=== PATIENT | female | born 1940 | race Caucasian/White ===

== ENCOUNTER 2019-09-01 21:49 | Inpatient (IN) ==
[2019-09-01] MEDS ORDERED: TYLENOL PO ONE (22:12)
--- NOTE | 2019-09-01 22:37 | PROVIDER DOCUMENTATION ---
This chart was entered by Feli Lopez Scribe, acting as scribe for Eamon Coyle MD. HPI-Respiratory General - General Chief Complaint: Shortness of Breath Stated Complaint: SOB COUGH Time Seen by Provider: 09/01/19 21:57 Source: patient Allergies/Adverse Reactions: Patient Allergies Allergy/AdvReac Type Severity Reaction Status Date / Time morphine AdvReac Intermediate "makes me Verified 01/26/14 20:33 crazy" Home Medications: Home Medication List Medication Instructions Recorded Confirmed Last Taken Type Alprazolam [Xanax] 0.5 mg PO BID 11/16/13 01/26/14 01/25/14 History Diltiazem HCl [Diltiazem 24Hr Cd] 240 mg PO DAILY 11/16/13 01/26/14 01/26/14 History Furosemide [Lasix] 40 mg PO DAILY 11/16/13 01/26/14 01/26/14 History Glipizide [Glipizide ER] 10 mg PO DAILY 11/16/13 01/26/14 01/26/14 History Levothyroxine [Synthroid] 125 microgm PO DAILY 11/16/13 01/26/14 01/26/14 History PRAVAstatin [Pravachol] 80 mg PO DAILY 11/16/13 01/26/14 01/26/14 History Warfarin [Coumadin] 2.5 mg PO QHS 11/16/13 01/26/14 01/25/14 History - History of Present Illness-Resp Nature of Presenting Problem: 79 y/o female with history of diabetes, COPD, and hypertension presents to the ED with complaint of fever and dry cough times three days. She is on Warfarin but does not know what she takes this for. Onset/Duration: reports: 3 days ago Timing: reports: still present Cough Quality/Degree: reports: dry cough Current Respiratory Medication Therapy: Initiated see nurses note Associated Symptoms: reports: cough (dry), fever/chills Similar Symptoms Previously?: No Recently seen or treated by another doctor?: No Review of Systems - Adult - REVIEW OF SYSTEMS - ADULT Constitutional: reports: fever. denies: weight gain, weight loss Eyes: reports: no symptoms reported Ears, Nose, Mouth & Throat: reports: no symptoms reported Cardiovascular: reports: no symptoms reported Respiratory: reports: cough (dry). denies: hemoptysis, shortness of breath Gastrointestinal: denies: diarrhea, nausea, vomiting Genitourinary: reports: no symptoms reported Musculoskeletal: reports: no symptoms reported Integumentary: reports: no symptoms reported Neurological: reports: no symptoms reported Psychiatric: reports: no symptoms reported Endocrine: reports: no symptoms reported Hematologic/Lymphatic: reports: no symptoms reported Allergic/Immunologic: reports: no symptoms reported All Other Systems: Reviewed and Negative Past History - Adult - PAST MEDICAL HISTORY-ADULT Review of Records: reports: Old Records Reviewed, Nursing Assessment Review, Medications Reviewed Major Childhood Illnesses: reports: denies history Cardiovascular: reports: A-Fib, HTN, hyperlipidemia Respiratory: reports: asthma Gastrointestinal: reports: denies history Obstetrical/Gynecological: reports: denies history Genitourinary: reports: denies history Musculoskeletal: reports: denies history Neurological: reports: denies history Endocrine/Immune: reports: Diabetes, thyroid disorder Other Conditions: reports: denies history - PRIOR SURGERIES/PROCEDURES Surgical/Procedure History: reports: BTL - PRIOR HOSPITALIZATIONS Prior Hospitalizations: reports: none - IMMUNIZATION STATUS Childhood Immunizations: See Nurse Assessment Flu Vaccine: See Nurse Assessment - FAMILY HISTORY Family History: reviewed, not pertinent - SOCIAL HISTORY Smoking: non-smoker Substance Use: none/never Alcohol Use Frequency: never Physical Exam-General - PHYSICAL EXAM-ADULT Initial Vital Signs Reviewed: Yes - CONSTITUTIONAL General Appearance: alert, obese. negative: appears well - EYES Eyes: PERRL/EOMI - HEAD, EARS, NOSE, MOUTH & THROAT HENMT: normocephalic/atraumatic, moist mucous membranes - NECK Neck: full range of motion, supple - RESPIRATORY Respiratory: decreased breath sounds, wheezing (scattered) - CARDIOVASCULAR Cardiovascular: tachycardia - GASTROINTESTINAL (ABDOMEN) Abdominal Exam: non tender, soft. negative: guarding, rebound - SKIN Integumentary: other (hot to touch). negative: diaphoresis - NEUROLOGIC Neurologic: grossly normal - HEART Score HEART Score: Age: > or = 65 Years Progress - PLAN OF CARE/RESULTS Progress/Plan/Lab Results: Vital Signs - 8 hr 09/01/19 21:56 Temperature 102.6 F H Pulse Rate 132 H Respiratory Rate 22 Blood Pressure 162/144 O2 Sat by Pulse Oximetry 82 L Laboratory Results - last 24 hr 09/01/19 09/01/19 09/01/19 22:18 22:18 22:18 WBC 9.84 RBC 4.49 Hgb 14.3 Hct 43.8 MCV 97.6 MCH 31.8 H MCHC 32.6 L RDW Std Deviation 13.8 Plt Count 168 MPV 11.3 H Immature Gran % (Auto) 0.3 Neut % (Auto) 80.2 H Lymph % (Auto) 7.8 L Callahan % (Auto) 11.6 H Eos % (Auto) 0.0 Baso % (Auto) 0.1 Immature Gran # (Auto) 0.03 Neut # (Auto) 7.89 H Lymph # (Auto) 0.77 L Callahan # (Auto) 1.14 H Eos # (Auto) 0.00 Baso # (Auto) 0.01 PT INR Specimen Type Sample Site pH pCO2 pO2 HCO3 Base Excess Oxyhemoglobin ABG O2 Sat (Calculated) ABG O2 Saturation ABG Carboxyhemoglobin ABG Methemoglobin Bo Test A-a O2 Difference Total Hemoglobin Lactate Liter Flow Blood Gas Modality FiO2 % Sodium 137 Potassium 4.2 Chloride 95 L Carbon Dioxide 22 L Anion Gap 20 BUN 21 Creatinine 1.2 H Estimated GFR/1.73 m2 43 BUN/Creatinine Ratio 18 Glucose 215 H Calculated Osmolality 283 Calcium 9.6 Total Bilirubin 1.30 H AST 20 ALT 20 Alkaline Phosphatase 64 Creatine Kinase 112 Troponin T High Sens Klz-C-Hnclthmtwjm Pept Total Protein 6.9 Albumin 3.9 Globulin 3.0 Albumin/Globulin Ratio 1.0 Plasma Lactate Urine Source Urine Color Urine Turbidity Urine pH Ur Specific [place] Urine Protein Ur Glucose (Stick) Ur Ketones (Stick) Urine Blood Urine Nitrite Urine Bilirubin Urobilinogen Dipstick Urine Leukocytes Urine WBC (Auto) Urine RBC (Auto) U Epithel Cells (Auto) Urine Bacteria (Auto) Influenza A (Rapid) Influenza B (Rapid) 09/01/19 09/01/19 09/01/19 22:18 22:18 22:18 WBC RBC Hgb Hct MCV MCH MCHC RDW Std Deviation Plt Count MPV Immature Gran % (Auto) Neut % (Auto) Lymph % (Auto) Callahan % (Auto) Eos % (Auto) Baso % (Auto) Immature Gran # (Auto) Neut # (Auto) Lymph # (Auto) Callahan # (Auto) Eos # (Auto) Baso # (Auto) PT INR Specimen Type Sample Site pH pCO2 pO2 HCO3 Base Excess Oxyhemoglobin ABG O2 Sat (Calculated) ABG O2 Saturation ABG Carboxyhemoglobin ABG Methemoglobin Bo Test A-a O2 Difference Total Hemoglobin Lactate Liter Flow Blood Gas Modality FiO2 % Sodium Potassium Chloride Carbon Dioxide Anion Gap BUN Creatinine Estimated GFR/1.73 m2 BUN/Creatinine Ratio Glucose Calculated Osmolality Calcium Total Bilirubin AST ALT Alkaline Phosphatase Creatine Kinase Troponin T High Sens 24 H Ehp-B-Bfvpfsrjbgo Pept 2240 H Total Protein Albumin Globulin Albumin/Globulin Ratio Plasma Lactate 2.6 H Urine Source Urine Color Urine Turbidity Urine pH Ur Specific [place] Urine Protein Ur Glucose (Stick) Ur Ketones (Stick) Urine Blood Urine Nitrite Urine Bilirubin Urobilinogen Dipstick Urine Leukocytes Urine WBC (Auto) Urine RBC (Auto) U Epithel Cells (Auto) Urine Bacteria (Auto) Influenza A (Rapid) Influenza B (Rapid) 09/01/19 09/01/19 09/01/19 22:18 22:26 22:35 WBC RBC Hgb Hct MCV MCH MCHC RDW Std Deviation Plt Count MPV Immature Gran % (Auto) Neut % (Auto) Lymph % (Auto) Callahan % (Auto) Eos % (Auto) Baso % (Auto) Immature Gran # (Auto) Neut # (Auto) Lymph # (Auto) Callahan # (Auto) Eos # (Auto) Baso # (Auto) PT 18.0 H INR 1.41 Specimen Type ARTERIAL Sample Site L BRACHIAL pH 7.45 pCO2 37 pO2 61 HCO3 26.2 H Base Excess 1.9 Oxyhemoglobin 90.7 L ABG O2 Sat (Calculated) 19.4 ABG O2 Saturation 94.5 L ABG Carboxyhemoglobin 3.00 H ABG Methemoglobin 0.9 Bo Test NO A-a O2 Difference 149.0 Total Hemoglobin 15.2 Lactate 2.30 H Liter Flow 4.0 Blood Gas Modality CANNULA FiO2 % 36.0 Sodium Potassium Chloride Carbon Dioxide Anion Gap BUN Creatinine Estimated GFR/1.73 m2 BUN/Creatinine Ratio Glucose Calculated Osmolality Calcium Total Bilirubin AST ALT Alkaline Phosphatase Creatine Kinase Troponin T High Sens Txy-I-Scfanpimumn Pept Total Protein Albumin Globulin Albumin/Globulin Ratio Plasma Lactate Urine Source Urine Color Urine Turbidity Urine pH Ur Specific [place] Urine Protein Ur Glucose (Stick) Ur Ketones (Stick) Urine Blood Urine Nitrite Urine Bilirubin Urobilinogen Dipstick Urine Leukocytes Urine WBC (Auto) Urine RBC (Auto) U Epithel Cells (Auto) Urine Bacteria (Auto) Influenza A (Rapid) NEGATIVE Influenza B (Rapid) NEGATIVE 09/01/19 23:17 WBC RBC Hgb Hct MCV MCH MCHC RDW Std Deviation Plt Count MPV Immature Gran % (Auto) Neut % (Auto) Lymph % (Auto) Callahan % (Auto) Eos % (Auto) Baso % (Auto) Immature Gran # (Auto) Neut # (Auto) Lymph # (Auto) Callahan # (Auto) Eos # (Auto) Baso # (Auto) PT INR Specimen Type Sample Site pH pCO2 pO2 HCO3 Base Excess Oxyhemoglobin ABG O2 Sat (Calculated) ABG O2 Saturation ABG Carboxyhemoglobin ABG Methemoglobin Bo Test A-a O2 Difference Total Hemoglobin Lactate Liter Flow Blood Gas Modality FiO2 % Sodium Potassium Chloride Carbon Dioxide Anion Gap BUN Creatinine Estimated GFR/1.73 m2 BUN/Creatinine Ratio Glucose Calculated Osmolality Calcium Total Bilirubin AST ALT Alkaline Phosphatase Creatine Kinase Troponin T High Sens Vud-U-Axxphmniroz Pept Total Protein Albumin Globulin Albumin/Globulin Ratio Plasma Lactate Urine Source CATH Urine Color YELLOW Urine Turbidity CLEAR Urine pH 6.0 Ur Specific [place] 1.037 Urine Protein 300 A Ur Glucose (Stick) >1000 A Ur Ketones (Stick) 10 A Urine Blood MODERATE A Urine Nitrite NEGATIVE Urine Bilirubin NEGATIVE Urobilinogen Dipstick NORMAL Urine Leukocytes NEGATIVE Urine WBC (Auto) 10-20 A Urine RBC (Auto) 20-40 A U Epithel Cells (Auto) >10 A Urine Bacteria (Auto) NEGATIVE Influenza A (Rapid) Influenza B (Rapid) Orders Category Date Time Status Admit - [facility] Routine AdmDCTranf 09/01/19 23:52 Active Cardiac Monitoring NOW Care 09/01/19 22:02 Active IV Insertion NOW Care 09/01/19 22:02 Completed Isolation Precautions Setup NOW Care 09/01/19 21:57 Active Misc. NRSG Communication Order DIRECTED Care 09/01/19 23:35 Active NEWS Score >or=5:Order NEWS Bundle S.O. NOW Care 09/01/19 22:00 Active Notify Provider of NEWS Score NOW Care 09/01/19 22:02 Active Resuscitation Status Routine Care 09/01/19 23:52 Ordered Vital Signs Order Q 4-HR ASSESS Care 09/01/19 23:52 Active Z-Document. for Tele Applied ORDERED Care 09/01/19 23:53 Active NPO Diet 09/01/19 23:54 Active CHEST-PORTABLE [RAD] Stat Exams 09/01/19 22:00 Taken ABG [RESP] Routine Lab 09/01/19 22:26 Completed BLOOD CULTURE [BLDCUL] Stat Lab 09/01/19 22:44 Ordered BNP [PRO B-NATRIURETIC PEPTIDE] Stat Lab 09/01/19 22:18 Completed CBC WITH ELECTRONIC DIFF [HEME] Stat Lab 09/01/19 22:18 Completed CK PROFILE [SP CHEM] Stat Lab 09/01/19 22:18 Completed CMP [COMPREHENSIVE METABOLIC PANEL] [CHEM] Stat Lab 09/01/19 22:[address] Stat Lab 09/01/19 22:35 Completed LACTATE, PLASMA [CHEM] Lab 09/01/19 22:18 Completed LACTATE, PLASMA [CHEM] Lab 09/02/19 01:15 Uncollected LACTATE, PLASMA [CHEM] Lab 09/02/19 04:15 Uncollected PROTIME WITH INR [COAG] Stat Lab 09/01/19 22:18 Completed TROPONIN T HIGH SENSITIVITY Stat Lab 09/01/19 22:18 Completed URINALYSIS W/POSS RFLX CULT [URINALYSIS] Stat Lab 09/01/19 23:17 Completed 0.9% Sodium Chloride Inj [Ns] 100 ml Med 09/01/19 23:47 Discontinued .ROUTE As directed Acetaminophen [Tylenol] Med 09/01/19 22:12 Discontinued 650 mg PO NOW ONE Acetaminophen [Tylenol] Med 09/01/19 23:52 Active 650 mg PO Q6H PRN PRN Azithromycin 500 mg/Ns [Zithromax 500 mg/Ns] Med 09/01/19 23:34 Active 500 mg in 250 ml IV NOW CefTRIAXONE [Rocephin] Med 09/01/19 23:47 Discontinued 2 gm .ROUTE .STK-MED ONE CefTRIAXONE [Rocephin] 2 gm Med 09/01/19 23:33 Discontinued 0.9% Sodium Chloride Inj [Ns] 50 ml IV NOW Furosemide [Lasix] Med 09/01/19 23:34 Discontinued 60 mg IV NOW ONE O2 Per Protocol Stat Oth 09/01/19 22:02 Active Oxygen Device Stat Oth 09/01/19 21:58 Active Telemetry [OM.EQ] Routine Oth 09/01/19 23:52 Active EKG [EKG] Stat Ther 09/01/19 22:01 Ordered Transfer/Admit Order [TRANSFER] Routine Transfer 09/01/19 23:54 Ordered 2334: Flu A and B negative. Result Diagrams: 09/01/19 22:18 09/01/19 22:18 - REASSESSMENT Reassessment #1 Time Reassessed: 00:05 Status: improving Reassessment Comment: oxygen sat improved - EKG 1 Time of EKG reading by physician:: 23:09 EKG Read and Signed by:: Eamon Coyle EKG Interpretation (*Must complete 3 of following elements*): Abnormal (possible anterior infarct age undetermined, ST and T wave abnormality consider inferolateral ischemia) Rate: 115 Rhythm: a-fib w/RVR Comments: No STEMI - XRAY 1 XRAY Study: Chest Impression: Abnormal (right lower lobe infiltrate, chf, increased interstitial markings) - CONSULTS/PCP/HOSPITALIST Notification #1 *Consult/PCP/Hospitalist*: Hospitalist, Dr. Mathews Time Discussed: 23:44 Reason/Comments: pneumonia,CHF, possible covid-19 Consult Disposition: Admit Departure - Departure Date of Disposition Decision: 09/01/19 Time of Disposition Decision: 23:42 DIAGNOSIS: Hypoxemia RLL pneumonia Qualifiers: Pneumonia type: due to unspecified organism Qualified Code(s): J18.9 - Pneumonia, unspecified organism Urinary tract infection Qualifiers: Urinary tract infection type: site unspecified Hematuria presence: with hemat uria Qualified Code(s): N39.0 - Urinary tract infection, site not specified CHF (congestive heart failure) Qualifiers: Heart failure type: unspecified Heart failure chronicity: unspecified Qualified Code(s): I50.9 - Heart failure, unspecified Disposition: ADMITTED INPATIENT 09 Certified Medical Emergency: Emergent Condition: Stable Referrals and Follow-Ups: None,PCP [Primary Care Provider] - - Critical Care Note This patient required my direct & personal management of CC.: Yes Total Time (mins): 95 Critical Care Statement: This patient required my direct personal management to treat or rule out processes, the absence of which, could potentiallly result in sudden, clinically significant life or limb threatening deterioration. Attestation - Physician/ ABEBA Attestation Patient care was provided by Advanced Practice Provider:: No The physician spent face to face time with patient:: Yes Advanced Practice Provider documentation review:: Supervising physician onsite and consulted in the evaluation and care of this patient. The physician did have a face to face encounter with the patient. This chart was documented by the indicated scribe, (Feli Lopez Scribe) and accurately reflects the services I performed and decisions made by me, Eamon Cyole MD, as attested by the provider's signature.
[2019-09-01 22:41] LABS: BE 1.9 mmoll (-3.0-3.0); BLOOD TYPE ARTERIAL; HCO3-(ACT) 26.2 mmoll (20.0-26.0); METHB 0.9 % (0.0-1.5); O2(CT) 19.4 mL/dL (15.0-23.0); O2HB 90.7 % (95.0-99.0); PCO2(98.6) 37 mmHg (35-45); PO2(98.6) 61 mmHg (60-100); SAMPLE BLOOD; SAO2 94.5 % (95.0-100.0); THB 15.2 g/dL (11.5-17.4); pH(98.6) 7.45 (7.35-7.45)
[2019-09-01 22:42] LABS: ALLEN TEST NO; MODALITY CANNULA
[2019-09-01 23:05] LABS: BASO# 0.01 X1000 (0.0-0.2); BASO% 0.1 % (0.0-0.8); HEMATOCRIT 43.8 % (37.0-47.0); HEMOGLOBIN 14.3 g/dL (12.0-16.0); IMM GRAN# 0.03 X1000 (0.0-0.04); IMM GRAN% 0.3 % (0.0-0.5); LYMPH# 0.77 X1000 (1.2-3.4); LYMPH% 7.8 % (20.5-51.1); MCH 31.8 PG (27-31); MCHC 32.6 g/dL (33-37); MCV 97.6 FL (81-99); MONO# 1.14 X1000 (0.11-0.59); MONO% 11.6 % (1.7-9.3); MPV 11.3 FL (7.4-10.4); NEUT# 7.89 X1000 (1.4-6.5); NEUT% 80.2 % (42.2-75.2); PLT 168 X1000 (130-400); RBC 4.49 XMIL (4.2-5.4); RDW 13.8 % (11.5-14.5); WBC 9.84 X1000 (4.8-10.8)
[2019-09-01 23:11] LABS: INFLUENZA A NEGATIVE (NEGATIVE); INFLUENZA B NEGATIVE (NEGATIVE)
[2019-09-01 23:16] LABS: ALBUMIN 3.9 g/dL (3.5-5.0); CALCIUM 9.6 mg/dL (8.8-10.2); CREATININE 1.2 mg/dL (0.5-0.9); POTASSIUM 4.2 mmol/L (3.5-5.1); TOTAL BILIRUBIN 1.3 mg/dL (0.20-1.00); TOTAL PROTEIN 6.9 g/dL (6.3-8.3)
[2019-09-01 23:27] LABS: URINE SOURCE CATH
[2019-09-01 23:31] LABS: BILIRUBIN URINE NEGATIVE (NEGATIVE); BLOOD URINE MODERATE (NEGATIVE); COLOR YELLOW; GLUCOSE URINE >1000 mg/dL (NEGATIVE); KETONE URINE 10 mg/dL (NEGATIVE); LEUKOCYTES URINE NEGATIVE (NEGATIVE); NITRITE URINE NEGATIVE (NEGATIVE); PROTEIN URINE 300 mg/dL (NEGATIVE); SP GRAVITY URINE 1.037; TURBIDITY URINE CLEAR (CLEAR); UROBILINOGEN URINE NORMAL (NORMAL)
[2019-09-01 23:32] LABS: UR EPITHELIAL CELLS >10 /HPF (<10); URINE BACTERIA NEGATIVE /HPF; URINE RBC 20-40 /HPF (<10)
[2019-09-01] MEDS ORDERED: ROCEPHIN 2 GM in NS 50 ML IV ONE (23:33)
[2019-09-01 23:34] LABS: INR 1.41
[2019-09-01] MEDS ORDERED: LASIX IV ONE (23:34)
[2019-09-01] MEDS ORDERED: ZITHROMAX 500 MG/NS 500 MG/250 ML IVPB IV ONE (23:34)
[2019-09-01] MEDS ORDERED: ROCEPHIN ONE (23:47)
[2019-09-01] MEDS ORDERED: NS 100 ML ONE (23:47)
[2019-09-01] MEDS ORDERED: TYLENOL PO PRN (23:52)
[2019-09-02] MEDS ORDERED: LOVENOX SUBQ SCH (04:30)
[2019-09-02] MEDS ORDERED: LANTUS INSULIN SUBQ ONE (04:42)
--- NOTE | 2019-09-02 05:03 | EKG Report ---
Test Performed on : 09/01/2019 11:08:09 PM Test Reason : sob Blood Pressure : / mmHG Vent. Rate : 115 BPM Atrial Rate : 144 BPM P-R Int : 000 ms QRS Dur : 088 ms QT Int : 302 ms P-R-T Axes : 000 007 204 degrees QTc Int : 417 ms Atrial fibrillation. with rapid ventricular response. Possible Anterior infarct , age undetermined ST & T wave abnormality, consider inferolateral ischemia Abnormal ECG No previous ECGs available Unconfirmed Result
[2019-09-02] MEDS: SYNTHROID PO SCH ×2 (05:35→06:10)
--- NOTE | 2019-09-02 06:00 | Diag Imaging Result Doc PS360 ---
EXAM: CHEST-PORTABLE HISTORY: sob TECHNIQUE: Single view COMPARISON: 01/31/2014 FINDINGS: Poor inspiratory effort. There are dense infiltrates in the right lower lobe. Mild increased interstitial markings in the remaining lobes. Heart isn't enlarged. No pleural effusions identified. There is a calcified granuloma in the right costophrenic angle. IMPRESSION: Dense right lower lobe pneumonia. Electronically signed by Bolivar Hooper 09/02/2019 5:57 AM
[2019-09-02 06:10] LABS: BASO# 0.01 X1000 (0.0-0.2); BASO% 0.1 % (0.0-0.8); HEMATOCRIT 46.4 % (37.0-47.0); HEMOGLOBIN 14.9 g/dL (12.0-16.0); IMM GRAN# 0.02 X1000 (0.0-0.04); IMM GRAN% 0.2 % (0.0-0.5); LYMPH# 1.01 X1000 (1.2-3.4); LYMPH% 9.7 % (20.5-51.1); MCH 31.4 PG (27-31); MCHC 32.1 g/dL (33-37); MCV 97.9 FL (81-99); MONO# 1.13 X1000 (0.11-0.59); MONO% 10.9 % (1.7-9.3); MPV 11.5 FL (7.4-10.4); NEUT% 79.1 % (42.2-75.2); PLT 170 X1000 (130-400); RBC 4.74 XMIL (4.2-5.4); WBC 10.37 X1000 (4.8-10.8)
[2019-09-02] MEDS: HUMULIN R SUBQ SCH ×4 (06:10→23:12)
--- NOTE | 2019-09-02 06:10 | HISTORY AND PHYSICAL ---
CHIEF COMPLAINT: Fever and cough of 3 days duration. HISTORY OF PRESENTING COMPLAINT: The patient is an 79-year-old female with history of diabetes, hypertension, hypothyroidism, hyperlipidemia, and anxiety who presents with fever and cough of 3 days duration. Of note, the patient says she started having a fever and chills about 3 days ago. She did not measure her temperature at home, but was noted to have a temperature of 102 in the ER. She describes associated cough that is dry. She also describes shortness of breath as well and was noted to be saturating in the 80s on room air in the ER and required intranasal oxygen which is new for her. Denies any chest pain. Denies any palpitations. She denies any leg swelling. She denies any contact with anybody with COVID-19. Denies any recent international or domestic travel. Of note, when the patient came to the ER she was noted to have had a fever of 102.6. Also, she was noted to be desaturating on room air. She was 82% on room air. She had to have oxygen put, and she was screened for COVID. She was transferred from [facility] [place] to [facility]. ALLERGIES: She has allergies to sulfonamides and morphine. HOME MEDICATIONS: 1. Allopurinol 100 mg daily. 2. Alprazolam 0.5 mg b.i.d. 3. Digoxin. 4. Diltiazem 36 mg daily. 5. Levothyroxine 125 mcg daily. 6. Lisinopril 10 mg daily. 7. Metformin 2000 mg daily. 8. Pravastatin 80 mg daily. 9. Warfarin, but this not confirmed as the patient does not know reason why she is on warfarin. PAST MEDICAL HISTORY: Diabetes, hypertension, hypothyroidism, and hyperlipidemia. SOCIAL HISTORY: She denies history of smoking or alcohol use. Denies any illicit drug use. FAMILY HISTORY: Mother has diabetes and hypertension. Father has no significant medical condition. She states her uncle has heart disease as well. REVIEW OF SYSTEMS: Denies any diarrhea or constipation. Denies any dysuria, frequency, or hematuria. Ten point review of systems done is negative except as stated in the HPI. PHYSICAL EXAMINATION: VITAL SIGNS: Temperature initially was 102.6, pulse 132, respiratory rate 22, blood pressure was 162/144 and O2 sats was 82% on room air. She required intravenous oxygen. At the time I seen the patient, the patient was on 5 L of oxygen. GENERAL: Patient is an elderly female in no acute respiratory distress. HEENT: Sclerae anicteric. CVS: S1, S2 heard. No murmurs, rubs, or gallops. RESPIRATORY: Good air entry bilaterally. She has bibasilar crepitations as well on the right side compared to the left. No wheezing heard. ABDOMEN: No area of tenderness. Bowel sounds normoactive. No organomegaly noted. EXTREMITIES: No bilateral pitting edema noted. NEUROLOGIC: Alert and oriented x3. No gross focal neurological abnormality. SKIN: No significant skin changes noted. LABORATORY: WBC 9.84, hemoglobin 14.3, hematocrit 43.8, and platelet 168,000. Lymphocyte is low at 7.8% and absolute lymphocyte count is 0.77, which is also low compared to her baseline. INR is 1.41. A pH of 7.45, pCO2 37, and PO2 61. BMP: Sodium 132, potassium 4.2, chloride 95, bicarb 22, BUN 21, and creatinine 1.2. Anion gap is 20. LFTs: AST 20, ALT 20, and total bilirubin is 1.3. Creatine kinase 112. Troponin T is 24. ProBNP 2440. Lactate is 2.6. UA was significant for specific gravity of 1.037, protein of 300, glucose of greater than 1000. Blood was moderate. Nitrite negative. Leukocyte negative, WBC 10 to 20 minutes, RBC 20 to 40. Epithelial cells greater than 10. Bacteria is negative. Influenza A and B tests were both negative. IMAGING: Chest x-ray done. I reviewed the chest x-ray which shows right lower lobe infiltrate. Mild infiltrate on the left, and was more predominant on the right with also some blunting of the right costophrenic angle as well. ASSESSMENT AND PLAN: An 79-year-old female with history of hypertension, diabetes, hyperlipidemia, and hypothyroidism who presents with fever and cough which is predominantly dry, and shortness of breath as well. The patient was desaturating on room air and now requiring nasal cannula oxygen. The patient has no known contact with COVID-19 patient, and no recent travel. ACUTE DIAGNOSES: 1. Right lower lobe Pneumonia 2. Suspected COVID-19 infection. 3. Troponinemia, likely demand ischemia. 4. Acute hypoxic respiratory failure. CHRONIC DIAGNOSES: 1. Hypertension. 2. Diabetes. 3. Hyperlipidemia. 4. Hypothyroidism. PLAN: 1. We will treat her right lower lobe pneumonia with antibiotics, IV Rocephin, and azithromycin. Additional workup to confirm this is more of a bacterial infection compared to a viral infection. We will obtain a procalcitonin. We will do a sputum culture as well. The COVID-19 sample has already been taken. To follow up on results. 2. Given suspicion for COVID 19 infection, Symptomatic treatments for fever with Tylenol. Cough with Mucinex. We will also do a respiratory viral panel as well to rule out any additional viral course of the patient's presentation. To monitor closely. 3. We will trend troponin. most likely this is demand ischemia but troponin was slightly elevated. We will also trend lactic acid as well to ensure it trends down. 4. The patient has warfarin on his home medication, but unclear the reason. Patient does not know why she is on warfarin. Holding off on warfarin for now until pharmacy can confirm the reason for warfarin. The patient also is on digoxin as well. We will get a digoxin level to ascertain compliance and to ascertain digoxin is within therapeutic range. 5. Given the bilateral crepitations noted on examination on the bilateral lower lobe, worse on the right and the elevated proBNP, we will do a 2D echo to ascertain to additional cardiac cause. The patient's last echo was done in 2013 that shows normal ejection fraction. DVT prophylaxis with Lovenox. Code Status: Full code. DISPOSITION: Admit the patient inpatient. The patient will have at least 2 days of inpatient admission. Will monitor COVID-19 test results. The patient needs to be titrated off oxygen with improvement in treatment of patient's pneumonia. [facility]
[2019-09-02 06:23] LABS: INR 1.45; PROTIME 17.9 Seconds (11.0-16.0)
[2019-09-02 06:40] LABS: CALCIUM 9.4 mg/dL (8.8-10.2); CREATININE 1.1 mg/dL (0.5-0.9); DIGOXIN 0.5 ng/mL (0.9-2.0); POTASSIUM 3.8 mmol/L (3.5-5.1)
[2019-09-02] MEDS: CARDIZEM CD PO SCH (09:24)
[2019-09-02] MEDS: ZYLOPRIM PO SCH (09:24)
[2019-09-02] MEDS: PRINIVIL PO SCH (09:24)
[2019-09-02] MEDS: MUCINEX PO SCH ×2 (09:24→23:11)
[2019-09-02] MEDS: XANAX PO SCH ×2 (09:24→23:11)
--- NOTE | 2019-09-02 13:02 | PROGRESS NOTE ---
DATE: 09/02/2019 SUBJECTIVE: The patient seems to be feeling better today. She is slightly tachycardic. She is still on oxygen supplementation, and she feels better. We will continue with same management for now. We have requested COVID-19 test to rule out infection. The patient has a history of atrial fibrillation. I will stop Lovenox, and I will put her back on warfarin. Her INR is subtherapeutic, and apparently she has been on 3.5 mg daily, so I will increase it to 4 mg and monitor. OBJECTIVE: Vital Signs: Temperature 98.5 degrees, pulse 110, respiratory rate 18, blood pressure 120/73, oxygen saturation 97% on 5 L nasal cannula. HEENT: Head is normocephalic and atraumatic. PERRLA. Neck: Supple. No JVD. No masses. Central trachea. Chest: Decreased breath sounds globally with rhonchi at the right base and some crepitus. Abdomen: Soft, nontender, and nondistended. No hepatosplenomegaly. Extremities: No edema, clubbing or cyanosis. Neurologic: The patient is awake and alert. No focal deficits. LABORATORY DATA: WBC 10.3, hemoglobin 14.9, hematocrit 46.4, platelets 170,000, sodium 142, potassium 3.8, chloride 98, bicarbonate 28, BUN 22, creatinine 1.1, glucose 149, and calcium 9.4. ASSESSMENT AND PLAN: 1. Right lower lobe pneumonia. Continue with antibiotics. Continue with oxygen supplementation, pulmonary toilet, and breathing treatments. We will try to rule out COVID-19 infection. 2. Acute hypoxemic respiratory failure due to #1. 3. Hypertension. This seems to be stable. We will continue with same management. 4. Diabetes. Continue with same treatment. Blood sugar seems to be better controlled compared with yesterday. Continue with pattern blood sugars and sliding scale insulin. 5. Hyperlipidemia. Continue with same management. 6. Hypothyroidism. This patient has been placed on Synthroid. 7. History of atrial fibrillation. I will continue warfarin. I will increase the dose a little bit though. Her INR is still subtherapeutic. It looks like she has been also on digoxin, her digoxin level is low. For now, I will continue with diltiazem. cc: Ankit Schafer MD
--- NOTE | 2019-09-02 15:27 | ECHO REPORT ---
ORDER DATE: 09/02/2019 PROCEDURE PERFORMED: A 2D echocardiogram limited to assess left ventricular systolic function. INTERPRETING PHYSICIAN: Dr. Christian Brewster. ECHOCARDIOGRAPHIC MEASUREMENTS: 1. Interventricular septum: 1.1 cm. 2. Left ventricular posterior wall: 0.8 cm. 3. Diastolic diameter: 4.1 cm. 4. Left atrium: 5 cm. 5. Aorta: 3.0 cm. SUMMARY OF THE 2-DIMENSIONAL IMAGIN. There is left atrial enlargement. 2. Aortic valve leaflets were trileaflet. 3. Mitral valve was normal. 4. Tricuspid valve was normal. 5. There is mitral annular calcification. 6. Aortic valve leaflets were calcified, trileaflet. 7. Normal left ventricular cavity size. Estimated ejection fraction of 65%. 8. There is anterior echo-free space suggestive of pericardial fat pad. This is a limited study. Doppler studies were not obtained. cc: Christian Brewster MD
[2019-09-02] MEDS: ZITHROMAX 500 MG/NS 500 MG/250 ML IVPB IV SCH (23:10)
[2019-09-02] MEDS: COUMADIN PO SCH (23:11)
[2019-09-02] MEDS: LIPITOR PO SCH (23:11)
[2019-09-03] MEDS: ROCEPHIN 1 GM in NS 50 ML IV SCH ×2 (00:10→21:56)
[2019-09-03] MEDS: TYLENOL PO PRN (05:25)
[2019-09-03 06:10] LABS: BASO# 0.03 X1000 (0.0-0.2); BASO% 0.3 % (0.0-0.8); EOS# 0.01 X1000 (0.0-0.7); EOS% 0.1 % (0.0-10.0); IMM GRAN# 0.03 X1000 (0.0-0.04); IMM GRAN% 0.3 % (0.0-0.5); LYMPH# 1.21 X1000 (1.2-3.4); LYMPH% 10.5 % (20.5-51.1); MCH 31.2 PG (27-31); MCHC 31.8 g/dL (33-37); MONO# 1.13 X1000 (0.11-0.59); MONO% 9.8 % (1.7-9.3); MPV 12.1 FL (7.4-10.4); PLT 178 X1000 (130-400); RBC 4.49 XMIL (4.2-5.4); RDW 13.7 % (11.5-14.5); WBC 11.51 X1000 (4.8-10.8)
[2019-09-03] MEDS: SYNTHROID PO SCH (06:27)
[2019-09-03 06:40] LABS: ALB/GLOB RATIO 0.8; ALBUMIN 3.2 g/dL (3.5-5.0); CALCIUM 9.6 mg/dL (8.8-10.2); CREATININE 1.1 mg/dL (0.5-0.9); MAGNESIUM 1.6 mg/dL (1.5-2.7); PHOSPHORUS 3.2 mg/dL (2.7-4.5); POTASSIUM 3.7 mmol/L (3.5-5.1); TOTAL BILIRUBIN 0.55 mg/dL (0.20-1.00); TOTAL PROTEIN 7.1 g/dL (6.3-8.3)
[2019-09-03] MEDS: HUMULIN R SUBQ SCH ×4 (06:59→21:40)
[2019-09-03] MEDS: PRINIVIL PO SCH (12:11)
[2019-09-03] MEDS: MUCINEX PO SCH ×2 (12:11→21:57)
[2019-09-03] MEDS: CARDIZEM CD PO SCH (12:11)
[2019-09-03] MEDS: ZYLOPRIM PO SCH (12:11)
[2019-09-03] MEDS: XANAX PO SCH ×2 (12:11→21:57)
[2019-09-03] MEDS ORDERED: COUMADIN PO ONE (13:00)
--- NOTE | 2019-09-03 13:09 | PROGRESS NOTE ---
DATE: 09/03/2019 SUBJECTIVE: The patient is still mildly short of breath. She continues to require 5.5 L of oxygen by nasal cannula. Test for Covid-19 is still pending. OBJECTIVE: Vital Signs: Temperature 98.1 degrees, heart rate 60, respiratory rate 19, blood pressure 152/60, O2 saturation 99% on 2 L nasal cannula. General Examination: This is an 79-year- old, female, lying in bed, in no acute distress. Cardiovascular Examination: Irregularly irregular heart rhythm. No murmurs, gallops, or rubs noted. Respiratory Examination: Rhonchi, mostly noted in the right base, and some crackles noted as well. Patient is not using any accessory muscles or having work of breathing. Abdomen: Soft, nontender to palpation. Bowel sounds present. No organomegaly. Extremities: No clubbing, cyanosis, or edema. Peripheral pulses present in both legs. Neurological Examination: The patient is alert and oriented x3. Moves 4 extremities. Laboratory Data: White cell count is 11.51, hemoglobin 14.0, hematocrit 44.0, platelets 178,000. BMP that reveals creatinine 1.1. ASSESSMENT AND PLAN: 1. Acute respiratory failure secondary to right lower lobe pneumonia. Patient continues to require 5.5 L of oxygen and she is still short of breath. She will continue to stay in the hospital for a few more days. Covid-19 test has been ordered but, of course, the results are still pending. We will continue to monitor. 2. Hypertension. Blood pressure is under control. We will continue with the same management. 3. Diabetes mellitus type 2. We will continue with sliding scale insulin and Accu-Chek before meals and also at bedtime. 4. Hyperlipidemia. We will continue home medications. 5. Hypothyroidism. We will continue with the same dose of Synthroid. 6. History of atrial fibrillation. The patient is on warfarin and the INR is subtherapeutic. We will provide one dose of 10 mg and then we will continue with 4 mg by mouth at bedtime. We will continue to check INR daily. 7. Disposition. We will continue to monitor this patient closely. We will consult physical therapy and occupational therapy for this patient. cc: Freddie Tinoco MD
[2019-09-03] MEDS: COUMADIN PO SCH (21:57)
[2019-09-03] MEDS: LIPITOR PO SCH (21:57)
[2019-09-03] MEDS: MIRALAX PO SCH (21:57)
[2019-09-04] MEDS: ZITHROMAX 500 MG/NS 500 MG/250 ML IVPB IV SCH (00:20)
[2019-09-04] MEDS: SYNTHROID PO SCH (06:36)
[2019-09-04] MEDS: HUMULIN R SUBQ SCH ×4 (06:40→22:22)
[2019-09-04 07:33] LABS: BASO# 0.02 X1000 (0.0-0.2); BASO% 0.2 % (0.0-0.8); EOS# 0.07 X1000 (0.0-0.7); EOS% 0.8 % (0.0-10.0); HEMOGLOBIN 13.5 g/dL (12.0-16.0); IMM GRAN# 0.03 X1000 (0.0-0.04); IMM GRAN% 0.3 % (0.0-0.5); LYMPH# 1.15 X1000 (1.2-3.4); LYMPH% 12.4 % (20.5-51.1); MCH 31.1 PG (27-31); MCHC 31.4 g/dL (33-37); MCV 99.1 FL (81-99); MONO# 1.05 X1000 (0.11-0.59); MONO% 11.3 % (1.7-9.3); MPV 11.5 FL (7.4-10.4); NEUT# 6.99 X1000 (1.4-6.5); PLT 203 X1000 (130-400); RBC 4.34 XMIL (4.2-5.4); RDW 13.6 % (11.5-14.5); WBC 9.31 X1000 (4.8-10.8)
[2019-09-04 07:38] LABS: INR 1.62; PROTIME 19.5 Seconds (11.0-16.0)
[2019-09-04 07:51] LABS: CALCIUM 9.6 mg/dL (8.8-10.2); CREATININE 1.1 mg/dL (0.5-0.9); POTASSIUM 3.7 mmol/L (3.5-5.1)
[2019-09-04] MEDS: MIRALAX PO SCH ×2 (10:07→22:22)
[2019-09-04] MEDS: CARDIZEM CD PO SCH (10:08)
[2019-09-04] MEDS: MUCINEX PO SCH ×2 (10:08→22:22)
[2019-09-04] MEDS: XANAX PO SCH ×2 (10:08→22:22)
[2019-09-04] MEDS: COLACE PO SCH (10:08)
[2019-09-04] MEDS: ZYLOPRIM PO SCH (10:08)
[2019-09-04] MEDS: PRINIVIL PO SCH (10:09)
[2019-09-04] MEDS ORDERED: LASIX IV ONE (10:18)
[2019-09-04] MEDS: DUONEB (A & A) INH SCH ×3 (10:34→20:25)
--- NOTE | 2019-09-04 12:07 | PROGRESS NOTE ---
DATE: 09/04/2019 SUBJECTIVE: The patient reported still feeling short of breath. Denies any fever or chills. OBJECTIVE: Vital Signs: Temperature 97.6 degrees, heart rate 105, respiratory rate 20, blood pressure 122/62, O2 saturation 94% on 5 L nasal cannula. General: This is an 79-year-old, female, lying in bed in no acute distress. Cardiovascular: Irregularly irregular heart rhythm. No murmurs, gallops, or rubs. Respiratory: Crackles and rhonchi, mostly noted on the right base, a little bit worse in comparing with yesterday. The patient is not using any accessory muscles or having work of breathing. Abdomen: Soft, nontender to palpation. Bowel sounds present. No organomegaly. Extremities: No clubbing, cyanosis, or edema. Peripheral pulses present in all legs. Neurological: The patient is alert and oriented x3. Moves all 4 extremities. LABORATORY DATA: White cell count 9.31, hemoglobin 13.5, hematocrit 43.0, platelets 203,000. BMP reveals creatinine 1.1. ASSESSMENT AND PLAN: 1. Acute respiratory failure secondary to right lower lobe pneumonia. The patient continues to require high amounts of oxygen. She is still short of breath. More crackles noted in both pulmonary bases. At this point, considering that the Coronavirus Disease 2019 is negative, I will start breathing treatments with DuoNeb every 4 hours scheduled, and will provide one dose of Lasix. We are going to check an x-ray, PA and lateral, and will go from there. 2. Hypertension. Blood pressure is under control. Will continue with the same management. 3. Diabetes mellitus type 2. Will continue with sliding scale insulin and Accu-Chek before meals and also at bedtime. 4. Hyperlipidemia. Will continue with home medications. 5. Hypothyroidism. Will continue the same dose of Synthroid. 6. History of atrial fibrillation. INR today is 1.62. Will continue with home doses of warfarin. 7. Disposition. Will continue to monitor this patient closely. Physical Therapy and Occupational Therapy have been consulted. cc: Freddie Tinoco MD
--- NOTE | 2019-09-04 12:36 | Diag Imaging Result Doc PS360 ---
EXAM: CHEST-2 VIEWS 09/04/2019 HISTORY: sob TECHNIQUE: PA and lateral chest COMMENT: There is opacification and volume loss in the right middle lobe and some hazy opacity over the right lower lobe. This appears to be slightly improved since 09/01/2019. The heart size is slightly enlarged. IMPRESSION: Right middle lobe and lower lobe pneumonia. Electronically signed by Victor M Milan 09/04/2019 12:33 PM
[2019-09-04] MEDS: COUMADIN PO SCH (22:22)
[2019-09-04] MEDS: LIPITOR PO SCH (22:22)
[2019-09-04] MEDS: ROCEPHIN 1 GM in NS 50 ML IV SCH (22:26)
[2019-09-05] MEDS: DUONEB (A & A) INH SCH ×7 (00:06→23:39)
[2019-09-05] MEDS: ZITHROMAX 500 MG/NS 500 MG/250 ML IVPB IV SCH (00:16)
[2019-09-05] MEDS: TYLENOL PO PRN ×3 (02:23→22:14)
[2019-09-05] MEDS: HUMULIN R SUBQ SCH ×4 (06:56→22:16)
[2019-09-05] MEDS: SYNTHROID PO SCH (06:57)
[2019-09-05 07:09] LABS: BASO# 0.02 X1000 (0.0-0.2); BASO% 0.3 % (0.0-0.8); EOS# 0.06 X1000 (0.0-0.7); EOS% 0.8 % (0.0-10.0); HEMATOCRIT 40.5 % (37.0-47.0); HEMOGLOBIN 12.8 g/dL (12.0-16.0); IMM GRAN# 0.02 X1000 (0.0-0.04); IMM GRAN% 0.3 % (0.0-0.5); LYMPH# 1.18 X1000 (1.2-3.4); LYMPH% 15.1 % (20.5-51.1); MCH 31.4 PG (27-31); MCHC 31.6 g/dL (33-37); MCV 99.3 FL (81-99); MONO# 0.91 X1000 (0.11-0.59); MONO% 11.6 % (1.7-9.3); NEUT# 5.64 X1000 (1.4-6.5); NEUT% 71.9 % (42.2-75.2); PLT 176 X1000 (130-400); RBC 4.08 XMIL (4.2-5.4); RDW 13.3 % (11.5-14.5); WBC 7.83 X1000 (4.8-10.8)
[2019-09-05 07:12] LABS: INR 2.64; PROTIME 28.9 Seconds (11.0-16.0)
[2019-09-05 07:26] LABS: CALCIUM 10.1 mg/dL (8.8-10.2); CREATININE 1.2 mg/dL (0.5-0.9); POTASSIUM 3.9 mmol/L (3.5-5.1)
[2019-09-05] MEDS: MUCINEX PO SCH ×2 (08:27→22:13)
[2019-09-05] MEDS: XANAX PO SCH ×2 (08:28→22:19)
[2019-09-05] MEDS: COLACE PO SCH (08:28)
[2019-09-05] MEDS: PRINIVIL PO SCH (08:28)
[2019-09-05] MEDS: ZYLOPRIM PO SCH (08:28)
[2019-09-05] MEDS: MIRALAX PO SCH ×2 (08:28→22:14)
[2019-09-05] MEDS: CARDIZEM CD PO SCH (08:28)
--- NOTE | 2019-09-05 14:14 | PROGRESS NOTE ---
DATE: 09/05/2019 SUBJECTIVE: I have seen and examined Ms. Calle today. She refers to be doing a lot better. She is currently on 4 L of supplemental oxygen. She denies any cough. OBJECTIVE: Vital Signs: Blood pressure is 108/45, pulse of 88, respirations are 17, temperature is 97.9 degrees, patient's T-max has been 98.7. General Examination: Ms. Calle is an 79-year- old, elderly, female. She was sitting in the chair. No distress. HEENT: Mucosa is pink and moist. Anicteric. Acyanotic. Neck: Supple. Chest: Air entry was bilaterally reduced. A few crackles posteriorly. No rhonchi. No accessory muscle use. Cardiovascular: Regular rate and rhythm. No murmurs. GI: Abdomen was soft, nontender. Bowel sounds present. There is no organomegaly. Extremities: No pedal edema. Distal pulses are present. 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 No focal deficit. Laboratory Data: WBC is 7.83, hemoglobin is 12.8, platelet count of 176,000. Chemistry is also reviewed. Creatinine is 1.2. Current Medications: Have all been reviewed. Patient is on azithromycin 500 mg every 24 hours. Today is day 3 on. Ceftriaxone 1 g every 24 hours. Today is day 3. ASSESSMENT: 1. Acute hypoxemic respiratory failure on admission secondary to right lower lobe pneumonia. Patient continues to be on supplemental oxygen. She is currently on 4 L. We will continue to titrate down. 2. Right lower lobe community-acquired pneumonia. Patient is currently on ceftriaxone with azithromycin. Today is day 3. WBC has normalized. She is currently afebrile. We will follow up with a repeat chest x-ray in the morning. 3. Hypertension, controlled on home medications. 4. Diabetes mellitus, controlled on insulin regimen. 5. Hypothyroidism. Patient is on Synthroid. 6. History of atrial fibrillation, on chronic Coumadin therapy. PLAN: In general, I think Ms. Calle is doing well. Still on 4 L today. We are going to titrate this down and see if she saturates well. She was not on chronic oxygen therapy at home prior to this admission. She seems to be fairly functional, living alone by herself with family support. We will continue physical therapy and re-evaluate her tomorrow. Disposition is going to depend on the rest of her hospital course. cc: Kris Herring MD
[2019-09-05] MEDS: ROCEPHIN 1 GM in NS 50 ML IV SCH (22:13)
[2019-09-05] MEDS: LIPITOR PO SCH (22:13)
[2019-09-05] MEDS: COUMADIN PO SCH (22:19)
[2019-09-06] MEDS: ZITHROMAX 500 MG/NS 500 MG/250 ML IVPB IV SCH ×2 (00:20→23:58)
[2019-09-06 03:21] LABS: BASO# 0.02 X1000 (0.0-0.2); BASO% 0.2 % (0.0-0.8); EOS# 0.07 X1000 (0.0-0.7); EOS% 0.8 % (0.0-10.0); HEMATOCRIT 41.8 % (37.0-47.0); HEMOGLOBIN 13.1 g/dL (12.0-16.0); IMM GRAN# 0.03 X1000 (0.0-0.04); IMM GRAN% 0.3 % (0.0-0.5); LYMPH# 0.93 X1000 (1.2-3.4); LYMPH% 10.1 % (20.5-51.1); MCHC 31.3 g/dL (33-37); MCV 99.1 FL (81-99); MONO% 10.9 % (1.7-9.3); MPV 11.9 FL (7.4-10.4); NEUT# 7.16 X1000 (1.4-6.5); NEUT% 77.7 % (42.2-75.2); PLT 224 X1000 (130-400); RBC 4.22 XMIL (4.2-5.4); RDW 13.4 % (11.5-14.5); WBC 9.21 X1000 (4.8-10.8)
[2019-09-06 03:31] LABS: INR 3.18; PROTIME 33.6 Seconds (11.0-16.0)
[2019-09-06] MEDS: DUONEB (A & A) INH SCH ×5 (03:31→19:47)
[2019-09-06] MEDS: TYLENOL PO PRN ×3 (03:37→20:33)
[2019-09-06 03:42] LABS: CALCIUM 10.1 mg/dL (8.8-10.2); CREATININE 0.9 mg/dL (0.5-0.9); POTASSIUM 4.2 mmol/L (3.5-5.1)
[2019-09-06 04:18] LABS: MAGNESIUM 1.7 mg/dL (1.5-2.7); POTASSIUM 4.2 mmol/L (3.5-5.1)
[2019-09-06] MEDS: SYNTHROID PO SCH (06:24)
[2019-09-06] MEDS: HUMULIN R SUBQ SCH ×4 (06:38→21:41)
--- NOTE | 2019-09-06 07:04 | Diag Imaging Result Doc PS360 ---
EXAM: CHEST-1 VIEW INDICATION: pneumonia follow up TECHNIQUE: One view COMPARISON: 09/04/2019 FINDINGS: Inspiration is suboptimal. The right basilar airspace consolidation seen previously is approximately stable given differences in inspiration. No new consolidation is identified. Cardiac silhouette is stable. IMPRESSION: Slightly lower lung volumes. Essentially stable chest, otherwise. Electronically signed by Dionte Moyer 09/06/2019 7:01 AM
[2019-09-06] MEDS: MUCINEX PO SCH ×2 (10:04→20:34)
[2019-09-06] MEDS: PRINIVIL PO SCH (10:04)
[2019-09-06] MEDS: COLACE PO SCH (10:04)
[2019-09-06] MEDS: CARDIZEM CD PO SCH (10:04)
[2019-09-06] MEDS: XANAX PO SCH (10:04)
[2019-09-06] MEDS: ZYLOPRIM PO SCH (10:04)
[2019-09-06] MEDS: MIRALAX PO SCH ×2 (10:05→20:34)
[2019-09-06] MEDS ORDERED: GLYCERIN ADULT PR ONE (15:01)
--- NOTE | 2019-09-06 15:28 | PROGRESS NOTE ---
DATE: 09/06/2019 SUBJECTIVE: I have seen and examined Miss Calle today. Miss Calle refers to be feeling better. She was sitting up eating her breakfast. She complains of some dry cough. She also says she has not had a bowel movement since she is in the hospital. OBJECTIVE: Vital signs: Blood pressure 137/71, pulse of 92, respirations 18, temperature 97.6 degrees. The patient was saturating 97% on 3 L. General: Miss Calle is an 79-year-old, elderly, female. She was in bed sitting up eating her breakfast. She was not in any distress. She was still on supplemental oxygen. HEENT: Mucous is pink and moist. Anicteric. Acyanotic. Neck: Supple. Chest: Air entry was bilaterally reduced more so to the right posterior lung field. A few crackles posteriorly. Cardiovascular: Regular rate and rhythm. No murmurs, no rubs, no gallops. Gastrointestinal: Abdomen was soft. It is globally distended. Nontender. Bowel sounds are present, but hypoactive. There is no organomegaly. Extremities: No pedal edema. CENTRAL NERVOUS SYSTEM: The patient is awake, alert, and follows commands. LABORATORY DATA: CBC is reviewed and completely unremarkable. Chemistry is also reviewed. Glucose of 197. Rest of chemistry is unremarkable. Blood cultures have been 48 hours negative. ASSESSMENT: 1. Acute hypoxemic respiratory failure on admission secondary to right lower lobe pneumonia. The patient continues to be on supplemental oxygen. She has been weaned down to 3 L today. We will continue with Respiratory Therapy recommendations. 2. Right lower lobe community-acquired pneumonia. The patient is on ceftriaxone and azithromycin. Today is day 4. WBC is normalized. Chest x-ray this morning has not shown any changes. 3. Hypertension, controlled. 4. Diabetes mellitus, stabilized on insulin regimen. 5. Hypothyroidism. The patient is on Synthroid. 6. History of atrial fibrillation rate controlled. The patient is also on chronic Coumadin therapy. 7. Constipation. The patient has been started on bowel regimen. 8. Coumadin therapy with INR of 3.18. In general, I think Miss Calle is fairly stable. We are going to continue her with physical therapy and respiratory therapy. She is still on antimicrobials. We will address her bowel movement today and hopefully tomorrow we can get her discharged. At the time of the dictation, Physical Therapy has already evaluated her. She was able to do 85 feet with minimum-assist front- wheel walker. cc: Kris Herring MD
[2019-09-06] MEDS: LIPITOR PO SCH (20:34)
[2019-09-06] MEDS: COUMADIN PO SCH (20:34)
[2019-09-06] MEDS: DESYREL PO SCH (20:34)
[2019-09-06] MEDS: ROCEPHIN 1 GM in NS 50 ML IV SCH ×2 (20:36→21:41)
[2019-09-07] MEDS: DUONEB (A & A) INH SCH ×5 (00:17→15:28)
[2019-09-07 05:57] LABS: BASO# 0.03 X1000 (0.0-0.2); BASO% 0.3 % (0.0-0.8); EOS# 0.06 X1000 (0.0-0.7); EOS% 0.6 % (0.0-10.0); HEMATOCRIT 43.6 % (37.0-47.0); HEMOGLOBIN 13.4 g/dL (12.0-16.0); IMM GRAN# 0.04 X1000 (0.0-0.04); IMM GRAN% 0.4 % (0.0-0.5); LYMPH# 1.33 X1000 (1.2-3.4); LYMPH% 13.5 % (20.5-51.1); MCH 30.9 PG (27-31); MCHC 30.7 g/dL (33-37); MCV 100.5 FL (81-99); MONO# 1.25 X1000 (0.11-0.59); MONO% 12.7 % (1.7-9.3); MPV 11.9 FL (7.4-10.4); NEUT# 7.12 X1000 (1.4-6.5); NEUT% 72.5 % (42.2-75.2); PLT 246 X1000 (130-400); RBC 4.34 XMIL (4.2-5.4); RDW 13.3 % (11.5-14.5); WBC 9.83 X1000 (4.8-10.8)
[2019-09-07 06:10] LABS: INR 3.69; PROTIME 37.8 Seconds (11.0-16.0)
[2019-09-07 06:12] LABS: CALCIUM 9.8 mg/dL (8.8-10.2); CREATININE 0.9 mg/dL (0.5-0.9); POTASSIUM 4.2 mmol/L (3.5-5.1)
[2019-09-07] MEDS: SYNTHROID PO SCH (07:03)
[2019-09-07] MEDS: HUMULIN R SUBQ SCH ×4 (07:03→20:51)
[2019-09-07] MEDS: MIRALAX PO SCH ×2 (09:47→21:25)
[2019-09-07] MEDS: LANOXIN PO SCH (09:48)
[2019-09-07] MEDS: COLACE PO SCH (09:49)
[2019-09-07] MEDS: MUCINEX PO SCH ×2 (09:49→20:50)
[2019-09-07] MEDS: PRINIVIL PO SCH (09:49)
[2019-09-07] MEDS: ZYLOPRIM PO SCH (09:50)
[2019-09-07] MEDS: CARDIZEM CD PO SCH (09:50)
[2019-09-07] MEDS ORDERED: CARDIZEM PO ONE (17:13)
--- NOTE | 2019-09-07 17:36 | PROGRESS NOTE ---
DATE: 09/07/2019 SUBJECTIVE: The patient is lying down in bed and tired. OBJECTIVE: vital signs: Blood pressure is 119/56, heart rate of 122, respiratory rate of 24, temperature 99.3 degrees. Cardiovascular: Her heart rate is not controlled. When I saw her she was in the 100s. Regular rate and rhythm. Pulmonary: Bilateral breath sounds. Clear to auscultation. Gastrointestinal: Soft, nontender, nondistended. Bowel sounds are positive. LABORATORY DATA: White count is 9, hemoglobin and hematocrit 13 and 43, platelets 246,000. Basic was okay. Blood sugar 246. PROBLEM LIST: 1. Atrial fibrillation or flutter. She is not rate controlled, at least not from my standpoint. She is up into the 140s. She is on digoxin and that is it. She is also on Cardizem which she is on it at maximum dose. So I am going to give her a little bit more Cardizem to see if we can control it. If she is still too fast, we may get a Cardiology opinion. She is kind of on maximum dose of Cardizem. Her digoxin could be possibly put up. I think we are avoiding beta blockers because of her chronic obstructive pulmonary disease. She does not look like she is wheezing a lot, so I am going to switch her to Xopenex and Atrovent and see how she does. 2. Acute hypoxic respiratory failure. Again, that seems to be improving. She is down to her regular 3 L. 3. Right lower lobe community-acquired pneumonia. She is on Rocephin and azithromycin day 5. 4. Hypothyroidism. She is on Synthroid. 5. Type 2 diabetes. She is on insulin. Her sugars are still somewhat elevated in the 200 range, so we will continue to monitor. We may have to adjust a bit accordingly. For her diabetes she is only on sliding scale. She is supposed to be on metformin, but that was held. I guess I am just going to put her back on it and we will see how she does. 1. Now her Coumadin today is a bit on the high side. She is on 4 a day, but it looks like it may have bumped up a little bit. cc: Christian Lin MD
[2019-09-07] MEDS: GLUCOPHAGE PO SCH (19:07)
[2019-09-07] MEDS: ROCEPHIN 1 GM in NS 50 ML IV SCH ×2 (20:50→21:34)
[2019-09-07] MEDS: TYLENOL PO PRN (20:50)
[2019-09-07] MEDS: LIPITOR PO SCH (20:51)
[2019-09-07] MEDS: DESYREL PO SCH (20:51)
[2019-09-07] MEDS: ZITHROMAX 500 MG/NS 500 MG/250 ML IVPB IV SCH ×2 (21:33→23:52)
[2019-09-07] MEDS: ATROVENT NEB INH SCH (22:04)
[2019-09-07] MEDS: XOPENEX NEB INH SCH (22:04)
[2019-09-08 05:52] LABS: BASO# 0.03 X1000 (0.0-0.2); BASO% 0.4 % (0.0-0.8); EOS# 0.07 X1000 (0.0-0.7); EOS% 0.8 % (0.0-10.0); HEMATOCRIT 44.9 % (37.0-47.0); HEMOGLOBIN 13.8 g/dL (12.0-16.0); IMM GRAN# 0.05 X1000 (0.0-0.04); IMM GRAN% 0.6 % (0.0-0.5); INR 3.18; LYMPH# 1.18 X1000 (1.2-3.4); LYMPH% 14.2 % (20.5-51.1); MCH 30.8 PG (27-31); MCHC 30.7 g/dL (33-37); MCV 100.2 FL (81-99); MONO# 1.13 X1000 (0.11-0.59); MONO% 13.6 % (1.7-9.3); MPV 11.8 FL (7.4-10.4); NEUT# 5.83 X1000 (1.4-6.5); NEUT% 70.4 % (42.2-75.2); PLT 301 X1000 (130-400); PROTIME 33.6 Seconds (11.0-16.0); RBC 4.48 XMIL (4.2-5.4); RDW 13.4 % (11.5-14.5); WBC 8.29 X1000 (4.8-10.8)
[2019-09-08 06:07] LABS: AGAP 13; BUN 19 mg/dL (8-22); CHLORIDE 98 mmol/L (98-107); COSMO 287; CREATININE 0.8 mg/dL (0.5-0.9); ESTIMATED GFR > 60; GLUCOSE 162 mg/dL (70-104); POTASSIUM 4.8 mmol/L (3.5-5.1); SODIUM 141 mmol/L (136-145); TCO2 30 mmol/L (25-35)
[2019-09-08] MEDS: HUMULIN R SUBQ SCH ×4 (06:47→20:59)
[2019-09-08] MEDS: SYNTHROID PO SCH (06:51)
[2019-09-08] MEDS: ATROVENT NEB INH SCH ×3 (11:00→22:00)
[2019-09-08] MEDS: XOPENEX NEB INH SCH ×3 (11:00→22:00)
[2019-09-08] MEDS: MUCINEX PO SCH ×2 (11:41→20:58)
[2019-09-08] MEDS: GLUCOPHAGE PO SCH ×2 (11:41→17:13)
[2019-09-08] MEDS: COLACE PO SCH (11:41)
[2019-09-08] MEDS: PRINIVIL PO SCH (11:41)
[2019-09-08] MEDS: ZYLOPRIM PO SCH (11:42)
[2019-09-08] MEDS: LANOXIN PO SCH (11:42)
[2019-09-08] MEDS: CARDIZEM CD PO SCH (11:42)
[2019-09-08] MEDS: MIRALAX PO SCH ×2 (11:43→20:58)
--- NOTE | 2019-09-08 15:29 | PROGRESS NOTE ---
DATE: 09/08/2019 SUBJECTIVE: The patient has no major complaints. OBJECTIVE: Blood pressure is 127/42, heart rate of 107, respiratory rate 21, temperature 97.5 degrees, 96% on 2 L.Cardiovascular: Regular rate and rhythm. Pulmonary: Bilateral breath sounds clear to auscultation. GI: Soft, nontender, nondistended. Bowel sounds are positive. LABORATORY DATA: Was really unremarkable. INR is down to 3.18. White count 8, hemoglobin and hematocrit 13, 44, platelets of 301,000, glucose 219. PROBLEM LIST: 1. Atrial flutter that seems to be better controlled, she is on Cardizem and digoxin. 2. Acute on chronic hypoxic respiratory failure. She is stable on current level of oxygen. 3. Right lower lobe pneumonia. She is on Rocephin and azithromycin day 6. Probably stop the azithromycin. She has had 5 days. 4. Hypothyroidism stable on Synthroid. 5. Type 2 diabetes. Blood sugars are improved since resuming her metformin. We will continue to follow. DISPOSITION: I am going to see how she does. Anticipate possible discharge soon. She is still very weak getting up and out of the bed. cc: Christian Lin MD
[2019-09-08] MEDS: LACTULOSE PO SCH ×2 (17:13→20:58)
[2019-09-08] MEDS: TYLENOL PO PRN ×2 (17:15→21:58)
[2019-09-08] MEDS: ROCEPHIN 1 GM in NS 50 ML IV SCH ×2 (20:58→21:49)
[2019-09-08] MEDS: LIPITOR PO SCH (20:58)
[2019-09-08] MEDS: DESYREL PO SCH (20:58)
[2019-09-08] MEDS ORDERED: COUMADIN PO SCH (21:00)
[2019-09-09] MEDS: HUMULIN R SUBQ SCH ×4 (06:04→17:18)
[2019-09-09 06:09] LABS: BASO# 0.12 X1000 (0.0-0.2); BASO% 1.8 % (0.0-0.8); EOS# 0.12 X1000 (0.0-0.7); EOS% 1.8 % (0.0-10.0); HEMATOCRIT 43.6 % (37.0-47.0); HEMOGLOBIN 13.4 g/dL (12.0-16.0); IMM GRAN# 0.04 X1000 (0.0-0.04); IMM GRAN% 0.6 % (0.0-0.5); LYMPH# 1.57 X1000 (1.2-3.4); LYMPH% 23.2 % (20.5-51.1); MCH 30.9 PG (27-31); MCHC 30.7 g/dL (33-37); MCV 100.5 FL (81-99); MONO% 13.3 % (1.7-9.3); MPV 11.8 FL (7.4-10.4); NEUT# 4.02 X1000 (1.4-6.5); NEUT% 59.3 % (42.2-75.2); PLT 272 X1000 (130-400); RBC 4.34 XMIL (4.2-5.4); RDW 13.5 % (11.5-14.5); WBC 6.77 X1000 (4.8-10.8)
[2019-09-09] MEDS: SYNTHROID PO SCH (06:15)
[2019-09-09 06:31] LABS: CALCIUM 9.7 mg/dL (8.8-10.2); CREATININE 0.9 mg/dL (0.5-0.9); POTASSIUM 4.5 mmol/L (3.5-5.1)
[2019-09-09] MEDS: ATROVENT NEB INH SCH ×2 (08:08→16:11)
[2019-09-09] MEDS: XOPENEX NEB INH SCH ×2 (08:08→16:11)
[2019-09-09] MEDS: LANOXIN PO SCH (08:12)
[2019-09-09] MEDS: GLUCOPHAGE PO SCH (08:12)
[2019-09-09] MEDS: ZYLOPRIM PO SCH (08:12)
[2019-09-09] MEDS: CARDIZEM CD PO SCH (08:13)
[2019-09-09] MEDS: LACTULOSE PO SCH (08:13)
[2019-09-09] MEDS: PRINIVIL PO SCH (08:13)
[2019-09-09] MEDS: MUCINEX PO SCH (08:13)
[2019-09-09] MEDS: MIRALAX PO SCH (08:13)
[2019-09-09] MEDS: COLACE PO SCH (08:13)
[2019-09-09 08:19] LABS: INR 2.95; PROTIME 31.6 Seconds (11.0-16.0)
--- NOTE | 2019-09-09 12:26 | Diag Imaging Result Doc PS360 ---
CHEST-2 VIEWS - 09/09/2019 INDICATION: hypoxia COMPARISON: 09/06/2019 FINDINGS: Stable cardiomegaly and pulmonary vascular congestion. Lung volumes are improved. There is no significantly improved aeration of the right lung base with decreased density of the infiltrate here. There is still some infiltrate mainly in the right middle lobe. No significant pleural effusion. IMPRESSION: Improved lung volumes. Significant improved aeration of the right lung base. Electronically signed by Charlie Wall 09/09/2019 12:23 PM
--- NOTE | 2019-09-09 16:09 | DISCHARGE SUMMARY ---
ADMISSION DATE: 09/02/2019 DISCHARGE DATE: 09/09/2019 SUBJECTIVE: Patient has no major complaints. OBJECTIVE: Vital Signs: Blood pressure is 121/86, heart rate of 88, respiratory rate 16, temperature 98.7 degrees. Cardiovascular: Regular rate and rhythm. Pulmonary: Bilateral breath sounds clear to auscultation. Her chest x-ray is much improved. She still has some intermittent hypoxia, but she is on home oxygen as needed. She is about 98% on 3 L. DISCHARGE DIAGNOSES: 1. Pneumonia. 2. Chronic obstructive pulmonary disease exacerbation. 3. Rule out Coronavirus Disease 2019 (COVID 19) infection. 4. Acute hypoxic respiratory failure. CONSULTATIONS: None. HISTORY OF PRESENT ILLNESS: This is an 79-year-old female with history of COPD and diabetes who comes in with fevers. Her x-ray initially showed a dense right lower lobe pneumonia. She had COVID screening which was negative. Echo is normal with EF of 65%. Chest x-ray shows right middle and lower lobe pneumonia. She slowly improved. Her main barriers to discharge were just her persistent hypoxia and she had some tachycardia with movement, but she has since done fine. DISCHARGE MEDS: Trazodone 100 at bedtime, allopurinol 100 daily, digoxin 125 daily, Cardizem 360 daily, metformin 2 g daily, Pravachol 80 daily, Prinivil 10 daily, Synthroid 125 daily, warfarin 3 at bedtime which she has been somewhat supratherapeutic. I did have to adjust, because usually on 3.5. She was subtherapeutic when she came in and then she got supratherapeutic. Now she is 2.95. We have adjusted down to 3 mg. I recommend a PT/INR either mid-week or within a week. She will also go home on Omnicef 300 p.o. b.i.d. for another 3 days. She has gotten a week's worth of treatment here and 5 days of azithromycin. PLAN: We recommend follow up x-ray and 4 to 6 weeks. Her PCP is Dr. Rubio. TIME SPENT: This was a 32-minute discharge and we did encourage her to use her oxygen 3 L. cc: Christian Lin MD
[2019-09-09 16:59] VITALS: BP 140/73
== END 2019-09-09 17:32 | disposition home health service (06) | DRG 871 ==
LOC: P.ED 21:49 → 2N 09-02 00:38 → SUATTDRO 09-02 00:38 → 2N 09-02 05:11 → 4N 09-02 17:37
PROVIDERS: ATTEND Internal Medicine